=== PATIENT | female | born 1955 | race Caucasian/White ===

== ENCOUNTER 2017-02-27 05:20 | Inpatient (IN) | payer OTHER ==
[2017-01-20 13:06] VITALS: Ht 170.2 cm; Wt 129.7 kg
--- NOTE | 2017-01-20 13:38 | PAT Medication Instructions ---
Service Date Jan 20, 2017. Current Home Medication List Acetaminophen/Diphenhydramine (Tylenol Pm), 1 TAB PO HS Aspirin (Aspirin Ec), 81 MG PO QAM B-Complex W/ Folic Acid (Super B Complex Maxi), 1 TAB PO QAM Nmdsogartok-Lhhebqmzabq-Ozk C- (Glucosamine Chondroitin), 1 TAB PO QAM Hydrocodone/Acetaminophen 5MG/325MG ([place] 5MG/325MG), 1 TABLET PO Q4H PRN for N Ibuprofen (Motrin), 800 MG PO BID Lisinopril (Zestril), 20 MG PO QAM Lovastatin (Mevacor), 40 MG PO HS Multivitamin (Multivitamin), 1 TAB PO QAM Omeprazole (Prilosec), 20 MG PO QAM Paroxetine (Paxil), 20 MG PO QAM [Glyburide Metformin], 1 TAB PO QAM Medication Instructions For Your Scheduled Surgery - Check with surgeon for instructions: Ibuprofen (Motrin), 800 MG PO BID - Hold the following medications startomg 01/21/17: Dcvpmpsjbka-Egeleecubkb-Ijr C- (Glucosamine Chondroitin), 1 TAB PO QAM - Hold the following medications the morning of surgery: [Glyburide Metformin], 1 TAB PO QAM Multivitamin (Multivitamin), 1 TAB PO QAM Lisinopril (Zestril), 20 MG PO QAM B-Complex W/ Folic Acid (Super B Complex Maxi), 1 TAB PO QAM - Take the following medications the morning of surgery with a sip of water: Omeprazole (Prilosec), 20 MG PO QAM Paroxetine (Paxil), 20 MG PO QAM Hydrocodone/Acetaminophen 5MG/325MG ([place] 5MG/325MG), 1 TABLET PO Q4H PRN for N (okay to take up to 4 hours prior to surgery if needed) Ibuprofen (Motrin), 800 MG PO BID Aspirin (Aspirin Ec), 81 MG PO QAM (okay to continue per surgeon) - Take the following medications as scheduled the night before surgery: Lovastatin (Mevacor), 40 MG PO HS Acetaminophen/Diphenhydramine (Tylenol Pm), 1 TAB PO HS Hydrocodone/Acetaminophen 5MG/325MG ([place] 5MG/325MG), 1 TABLET PO Q4H PRN for N (if needed) If you have any questions please call us at [phone] or [phone] or [phone]
[2017-01-20 14:00] LABS: BASO % 0.3 %; BASO ABS # 0.02 K/uL (0-0.2); COMPLETE YES; EOS % 1.1 %; HEMATOCRIT 37.4 % (37-47); IG% 0.3 %; LYMPH % 24.3 %; LYMPH ABS # 1.77 K/uL (1.2-3.4); MEAN CELL VOLUME 93.3 fL (80-100); MEAN CORPUSCULAR HEMOGLOBIN 29.4 pg (25-34); MEAN CORPUSCULAR HGB CONC 31.6 g/dl (32-36); MEAN PLATELET VOLUME 9.4 fL (7.4-10.4); MONO % 7.7 %; NEUT % 66.3 %; PLATELET COUNT 337 K/uL (130-400); RED BLOOD COUNT 4.01 M/uL (4.2-5.4); WHITE BLOOD COUNT 7.27 K/uL (4.8-10.8)
[2017-01-20 14:01] LABS: BUN/CREATININE RATIO 22.3 (10-20); CALCIUM 9.5 mg/dl (8.5-10.1); CREATININE 1.3 mg/dl (0.60-1.20); POTASSIUM 5.2 mmol/L (3.5-5.1)
[2017-01-20 14:14] LABS: INR 0.9 (0.9-1.1); PARTIAL THROMBOPLASTIN RATIO 0.9; PROTHROMBIN TIME (PATIENT) 9.9 SECONDS (9.0-12.0)
[2017-01-20 15:02] LABS: URINE APPEARANCE CLEAR (CLEAR); URINE BILIRUBIN NEG (NEG); URINE COLOR YELLOW; URINE EPITHELIAL CELL AUTO >30 /lpf (0-5); URINE NITRITE NEG (NEG); URINE SPECIFIC GRAVITY 1.038 (1.000-1.030); UROBILINOGEN NEG (NEG); ZZUR CULT IF INDIC CLEAN CATCH NO
[2017-01-20 15:05] LABS: MANUAL MICROSCOPIC REQUIRED? NO; REVIEW REQ? YES
--- NOTE | 2017-01-20 16:07 | HISTORY & PHYSICAL EXAMINATION ---
DATE OF ADMISSION: 02/02/2017 CHIEF COMPLAINT: Right hip pain. HISTORY OF PRESENT ILLNESS: Carley is a 61-year-old female with a multiple year history of right hip pain. She rates her pain a 10/10. She has pain with her daily activities. She has limited standing and walking tolerance. Pain is worse with weightbearing. The patient uses a cane to ambulate. She has been doing home exercise program but is worsening her symptoms. She has failed conservative treatment and is scheduled for right hip replacement. PAST MEDICAL HISTORY: Hypertension, hypercholesterolemia, depression, diabetes with an A1c of 6.7, obesity, acid reflux. She denies heart disease or DVT. PAST SURGICAL HISTORY: ACL repair right knee, ACL repair left knee, breast reduction 2005. SOCIAL HISTORY: The patient denies alcohol or tobacco use. She lives in a single story home with her cousin. She works as a parts advisor. FAMILY HISTORY: Negative for DVT. MEDICATIONS: Aspirin 81 mg daily, glucosamine 500 mg daily, glyburide/metformin 5/500 1 tablet daily, hydrocodone 7.5/325, ibuprofen 400 mg 2 tablets b.i.d., lisinopril 20 mg daily, lovastatin 40, Paroxetine 20 mg, Prilosec 20 mg, Tylenol and multivitamin 1 daily. ALLERGIES: None. REVIEW OF SYSTEMS: See HPI. Ten other systems reviewed, all negative. PHYSICAL EXAMINATION: VITAL SIGNS: Height 5 foot 7, weight 284 pounds. BMI is 45. GENERAL: This is a well-developed, well-nourished female who is alert and oriented x3. Mood and affect are appropriate. HEAD, EYES, EARS, NOSE, AND THROAT: Normocephalic, atraumatic. Mucous membranes are moist and intact. NECK: Supple without lymphadenopathy. HEART: Regular rate and rhythm without murmurs, rubs or gallops. LUNGS: Clear to auscultation without wheezes or rhonchi. ABDOMEN: Soft and nontender. Bowel sounds are equal and active. EXTREMITIES: No ecchymosis, redness or warmth. Thigh and calf are soft and nontender. Log roll of the hip reproduces pain in the groin. Range of motion is decreased. She is neurovascularly intact with +5/5 strength. X-RAY EXAMINATION: AP and lateral views show joint space narrowing and severe osteophyte formation. IMPRESSION: 1. Degenerative joint disease, right hip. 2. Morbid obesity. PLAN: The patient will be admitted for a right total hip arthroplasty. We will plan on aspirin for DVT prophylaxis.
[2017-01-21 07:07] LABS: ESTIMATED AVERAGE GLUCOSE 143 mg/dl; HA1C FLAG Normal (Normal)
--- NOTE | 2017-02-26 21:48 | History and Physical ---
History & Physical Date & Time of Service: Feb 26, 2017 at 21:40 Chief Complaint: Right Hip Osteoarthritis Primary Care Physician: No Doctor, Assigned History of Present Illness Source: patient 61 yo with chronic rt hip pain, failed conservative treatment, has increased pain w wt bearing and has failed HEP and the use of a cane. DX w end staged oa per clinical and radiographic exams. Past Medical/Surgical History HTN, hyperlipidemia, Depression, DM, acid reflux, obesity. ACL repair both knees and breast reduction surgery. Social History Smoking Status: Never Smoker Alcohol Use: none Drug Use: none Housing status: lives with family Allergies Coded Allergies: Celecoxib (Verified Allergy, Unknown, RASH, 01/20/17) Etodolac (Verified Allergy, Unknown, RASH, 01/20/17) Penicillins (Verified Allergy, Unknown, RASH, 01/20/17) ALLERGY WAS IN CHILDHOOD Home Medications Scheduled Acetaminophen/Diphenhydramine (Tylenol Pm), 1 TAB PO HS Aspirin (Aspirin Ec), 81 MG PO QAM B-Complex W/ Folic Acid (Super B Complex Maxi), 1 TAB PO QAM Ugzgkcbxuis-Yzqvsobxbjz-Gvg C- (Glucosamine Chondroitin), 1 TAB PO QAM Ibuprofen (Motrin), 800 MG PO BID Lisinopril (Zestril), 20 MG PO QAM Lovastatin (Mevacor), 40 MG PO HS Multivitamin (Multivitamin), 1 TAB PO QAM Omeprazole (Prilosec), 20 MG PO QAM Paroxetine (Paxil), 20 MG PO QAM [Glyburide Metformin], 1 TAB PO QAM Scheduled PRN Hydrocodone/Acetaminophen 5MG/325MG ([place] 5MG/325MG), 1 TABLET PO Q4H PRN for N Review of Systems Musculoskeletal: + joint pain, + muscle pain (rt hip) Physical Exam General Appearance: WD/WN, no apparent distress Head: normocephalic, atraumatic Eyes: normal inspection, PERRL, EOMI ENT: normal ENT inspection Neck: supple, no adenopathy Respiratory/Chest: lungs clear Cardiovascular: regular rate, rhythm Abdomen/GI: normal bowel sounds, non tender, soft No redness or warmth, Palpably nontender, + pain w log rolling, N/V + , 5/5+ Impression Assessment and Plan Right hip OA HTN, hyperlipidemia, Depression, DM, acid reflux, obesity. Plan for Rt RONNIE w appropriate DVT proph. Advanced Directives Existing Living Will: No Existing Power of Educational Technology Coordinator: No
[~2017-02-27] VITALS: Ht 170.2 cm; Wt 129.7 kg
[2017-02-27] VITALS (10 sets, daily range): BP systolic 109–176; BP diastolic 70–89; PULSE 80–102; TEMP 36.6–37.2; O2SAT 94–100
[~2017-02-27 05:20] MED LIST: ASPI81TA28 PO; B-CO-25 PO; DIPH-437 PO; GLUCTAB7 PO; GLYBURIDE METFORMIN PO; HYDR-5688 PO; IBUP-1459 PO; LACTATED RINGER'S 1000ML 1,000 ML IV SCH; LACTATED RINGER'S 1000ML 500 ML IV ONE; LISI-725 PO; LOVA40TA4 PO; MULT-506 PO; PARO1TAB27 PO; PRLSR20 PO
[2017-02-27] MEDS ORDERED: VANCOMYCIN INJ 2,000 MG in SODIUM CHLORIDE 0.9% 500ML 500 ML IV SCH (06:00)
[2017-02-27] MEDS ORDERED: ROPIVACAINE 5MG/ML 30 ML 150 MG, BUPIVACAINE/EPINEPHR 0.5% MPF 30 ML, KETOROLAC TROMETH... INFIL SCH ×6 (06:00)
[2017-02-27] MEDS ORDERED: VANCOMYCIN 1GM/270ML NSS 270 ML IV SCH (06:00)
[2017-02-27] MEDS ORDERED: LACTATED RINGER'S 500 ML IV SCH (06:00)
[2017-02-27] MEDS: METOCLOPRAMIDE HCL 10 MG TAB PO SCH ×2 (06:23→12:57)
[2017-02-27] MEDS: ACETAMINOPHEN 500 MG TAB PO SCH ×4 (06:23→22:21)
[2017-02-27] MEDS: FAMOTIDINE 20 MG TAB PO SCH ×2 (06:23→12:57)
[2017-02-27] MEDS: DEXAMETHASONE 4 MG TAB PO SCH ×2 (06:24→12:57)
[2017-02-27] MEDS: GABAPENTIN 300 MG CAP PO SCH ×2 (06:24→12:57)
[2017-02-27] MEDS ORDERED: PROPOFOL IV EMULSION 10 MG/ML 20 ML VIAL IV ONE ×4 (06:33→10:02)
[2017-02-27] MEDS ORDERED: FENTANYL CITRATE INJ 50 MCG/1 ML 2 ML VIAL ONE ×4 (06:33→11:10)
[2017-02-27] MEDS ORDERED: MIDAZOLAM HCL 1 MG/ML 2ML VIAL ONE ×2 (06:33→08:50)
[2017-02-27] MEDS ORDERED: LIDOCAINE HCL 2% 2 ML VIAL (20MG/ML) ONE (06:33)
[2017-02-27] MEDS ORDERED: KETAMINE HCL INJ 50 MG/ML 10 ML VIAL ONE (06:34)
[2017-02-27] MEDS ORDERED: BUPIVACAINE 0.5 % 5 MG/1 ML PF 10ML VIAL ONE (06:38)
[2017-02-27] MEDS ORDERED: BACITRACIN 50000 UNIT VIAL ONE (06:53)
[2017-02-27] MEDS ORDERED: POVIDONE-IODINE OP SOLN 30 ML BTL ONE (06:53)
--- NOTE | 2017-02-27 07:11 | History & Physical Bridge Note ---
H&P Re-Evaluation Bridge Note: I have examined the patient, reviewed the History & Physical and in the interval since the performance of the History & Physical I have noted the following changes of clinical significance: No changes noted
[2017-02-27] MEDS: TRANEXAMIC ACID INJ 1,000 MG in SODIUM CHLORIDE 0.9% 100ML 100 ML IV SCH ×3 (07:13→12:57)
[2017-02-27] MEDS ORDERED: EpHEDrine SULFATE INJ 50 MG/ML AMP IV PRN (07:30)
[2017-02-27] MEDS ORDERED: ATROPINE SULFATE 0.1 MG/ML 5ML SYR IV PRN (07:30)
[2017-02-27] MEDS ORDERED: ONDANSETRON INJ 2 MG/ML 2 ML VIAL IV PRN ×2 (07:30→11:00)
[2017-02-27] MEDS ORDERED: ROPIVACAINE 5MG/ML 30 ML 150 MG, BUPIVACAINE/EPINEPHR 0.5% MPF 30 ML, KETAMINE HCL INJ ... INFIL SCH ×5 (08:00)
[2017-02-27] MEDS ORDERED: LABETALOL HCL IV 5 MG/ML 20ML IV ONE (09:54)
[2017-02-27] MEDS ORDERED: HYDROmorphone INJ 2 MG/ML SYR/VIAL ONE (10:38)
[2017-02-27] MEDS ORDERED: SODIUM CHLORIDE 0.9% INJ 10 ML VIAL ONE (10:39)
[2017-02-27] MEDS ORDERED: D5W AND 1/2NSS + 20MEQ KCL 1,000 ML IV SCH (10:58)
[2017-02-27] MEDS: FENTANYL CITRATE INJ 50 MCG/1 ML 2 ML VIAL IV PRN ×3 (11:35→11:48)
--- NOTE | 2017-02-27 11:51 | [facility] Operative Report ---
Operative Report Operative Date Feb 27, 2017. Pre-Operative Diagnosis Right hip osteoarthritis, morbid obesity Post-Operative Diagnosis same, possible AVN femoral head with collapse Surgeon Ayala Long Distance Billing Operator Surgeon(s) Cristal Palma PA-C Estimated Blood Loss 400CC Findings Severe collapsed femoral head severe degenerative arthritis right hip morbid obesity. Specimens A: Right hip bone and tissue Drains 2 Hemovac deep, 2 Hemovac subcutaneous Anesthesia spinal followed by general LMA Complication(s) Possible hairline fracture femoral neck into lesser trochanter Disposition Recovery Room / PACU Indications Severe degeneration right hip and inability ambulate. Description of Procedure Patient taken to the operating room and anesthetized under spinal anesthesia. Patient was placed supine on the operating table. Exam of the right hip involved extremity demonstrated patient has had fairly good range of motion in flexion to at least 115 and had a very obese thigh obese belly.. Patient was placed on a sacral pad the involved leg was placed on a foot pump to flex knee 90 and hip 60. A Hurt-type approach was performed to the right hip. A longitudinal lateral incision was made over the right hip. The skin was incised sharply. The fat was divided down to the fascia. Subcutaneous bleeders are cauterized. Trochanter bursa was resected. The gluteus medius was noted to be thin and had some deep degeneration but still was intact . A split was made in the gluteus medius muscle between the anterior 40% and posterior 60%. The minimus was divided longitudinally reflected off the underlying capsule. The capsule was incised down to the hip joint. Intra- articular findings demonstrated femoral head collapse femoral neck osteophytes severe DJD. . An incision was made through the gluteus medius leaving a cuff of tendon for repair on the greater trochanter. The vastus lateralis was split longitudinally for about 3 cm. A muscular capsular flap was elevated off the hip. The hip was dislocated with use of bone out with flexion and external rotation. The femoral neck cut was made approximately 15 mm proximal to the lesser trochanter in neutral anteversion. Head and neck fragment were removed. The femoral head demonstrated collapse of the femoral head and grade 4 DJD. A self-retaining superior tractor was impacted into the ilium a blunt Guerrero retractor was placed anteriorly a double angled inferior retractor was placed on the issue. The acetabulum demonstrated . The acetabular labrum was resected all osteophytes were resected soft tissue mass of her fossa was resected. An intracapsular release was performed. Some the capsule was resected for exposure. The first reamer was used to medialize reaming to the inner table and then sequential reamers for the acetabulum were used in 2 mm increments up to a size 54 mm . I used the Comput[employer] total hip arthroplasty system using a PSL type cup. Trial reduction demonstrated a 54 mm millimeter cup was the appropriate size and fit. The placement of the final implant was performed after irrigating the acetabulum with antibiotic solution with pulsatile lavage. The position of the cup was approximately 15 anteversion 45 abduction. Good fixation was performed. 2 screws were placed in the posterior superior quadrant for further fixation through the cup. The acetabular liner was impacted into position. The Trident x3 poly 0 degree F 36 mm diameter acetabular liner was used. Retractors were removed and attention was taken to the femur. The femur was exposed with flexion external rotation. Canal reamer was used followed by sequential broaches up to a size 3 Accolade 2 trial. This had a good fit and fill. When the stem was fully seated we did note a microscopic crack along the medial calcar and it looked like it was heading toward the lesser trochanter. It was in a large crack in the like hairline crack but I didn't feel because of her obesity we should put a prophylactic wire around this so we put a Dall-Miles type cable around the femoral neck and tightened appropriately. Trial reduction was performed on 127 neck angle based on preoperative templating. A +5 neck length gave equal leg lengths and stable range of motion through full flexion flexion adduction and internal rotation and extension and external rotation. The trials removed and after irrigation again and the final implant was impacted which was the Accolade 2 size 3 stem 127 neck angle . The Biolox ceramic head size +5 mm with 36 mm diameter was used. After final implants replaced the reduction was noted to be stable. 2 drains were placed deep. These were brought out laterally and connected to Hemovac. The minimus was closed with interrupted [id number] #1 Vicryl sutures. The medius was closed with transosseous #5 FiberWire sutures using Dmitry Kapil stitch technique. Lateral row soft tissue repair was performed with figure of 8 #2 FiberWire sutures. The medius split was closed with interrupted [id number] #1 Vicryl sutures. The vastus lateralis was closed with interrupted figure minimal Vicryl sutures. The fascia juan r was closed with interrupted figure of 8 number 1 Vicryl sutures. The fat was closed with large needle #2 Vicryl to close the space over to more Hemovac drains and superficial [id number] #2 Vicryl sutures. Skin was closed with sixto sterile dressings were applied. The patient tolerated procedure well. Cristal Palma, my physician assistant manager of operations assisted me in the procedure with patient positioning And draping soft tissue retraction instrument management suture management and assisted in the outer layer closure and will participate in the postoperative care the patient thank you. I attest to the content of the Intraoperative Record and any orders documented therein. Any exceptions are noted below.
--- NOTE | 2017-02-27 11:54 | DIAGNOSTIC IMAGING REPORT ---
RIGHT PELVIS/UNILATERAL HIP 1 VIEW CLINICAL HISTORY: IN PACU - A/P PELVIS and LATERAL HIP INCLUDING ALL OF IMPLANT Right COMPARISON: None. DISCUSSION: Total right hip arthroplasty. Circumferential wire proximal femur. No evidence for acetabular protrusion. Expected soft tissue postoperative change IMPRESSION: No acute process status post total right hip replacement The above report was generated using voice recognition software. It may contain grammatical, syntax or spelling errors. Electronically signed by: Ildefonso Chavez M.D. 02/27/2017 11:53 AM Dictated Date/Time: 02/27/2017 11:48 AM
--- NOTE | 2017-02-27 12:00 | Anesthesiology Progress Note ---
Anesthesia Post Op Note Date & Time Feb 27, 2017 at 11:59 Vital Signs Pain Intensity: 5 Vital Signs Past 12 Hours Date Time Temp Pulse Resp B/P (MAP) Pulse Ox O2 Delivery O2 Flow Rate FiO2 02/27/17 11:50 81 18 139/69 96 Nasal Cannula 3 02/27/17 11:40 86 14 143/66 100 Oxymask 6 02/27/17 11:30 90 12 156/74 100 Oxymask 10 02/27/17 11:24 152/72 02/27/17 11:21 37.4 95 16 199/110 100 Oxymask 10 02/27/17 06:13 37.1 80 18 176/89 94 Room Air Notes Mental Status: alert / awake / arousable, participated in evaluation Pt Amnestic to Procedure: Yes Nausea / Vomiting: adequately controlled Pain: adequately controlled Airway Patency, RR, SpO2: stable & adequate BP & HR: stable & adequate Hydration State: stable & adequate Neuraxial Anesthesia: was administered, sensory block is resolving Anesthetic Complications: no major complications apparent
[2017-02-27] MEDS: LACTATED RINGER'S 1000ML IV SCH ×4 (12:53→12:57)
[2017-02-27] MEDS ORDERED: GLUCOSE 10 TABS/TUBE PO PRN (13:45)
[2017-02-27] MEDS ORDERED: GLUCOSE 40% GEL 15 GM TUBE PO PRN (13:45)
[2017-02-27] MEDS ORDERED: GLUCAGON FOR INJ 1 MG VIAL SQ PRN (13:45)
[2017-02-27] MEDS ORDERED: SODIUM CHLORIDE 0.9% 1000ML 1,000 ML IV SCH (13:45)
[2017-02-27] MEDS ORDERED: DEXTROSE 50% 50 ML SYR IV PRN (13:45)
[2017-02-27] MEDS: OXYCODONE HCL IR 5 MG TAB (IMMEDIATE RELEASE) PO PRN ×4 (13:48→23:28)
[2017-02-27] MEDS ORDERED: VANCOMYCIN INJ 1,900 MG in SODIUM CHLORIDE 0.9% 500ML 500 ML IV SCH (18:00)
[2017-02-27] MEDS: FERROUS GLUCONATE 324 MG TAB PO SCH (18:36)
[2017-02-27] MEDS: INSULIN ASPART 100 UNITS/ML 3 ML PEN SC SCH (18:42)
[2017-02-27] MEDS: OXYCODONE HCL 10 MG TABCR (OXYCONTIN) PO SCH (20:02)
[2017-02-27] MEDS: DOCUSATE SODIUM 100 MG CAP PO SCH (21:22)
[2017-02-27 21:26] LABS: HEMATOCRIT 26.8 % (37-47); MEAN CELL VOLUME 89.6 fL (80-100); MEAN CORPUSCULAR HEMOGLOBIN 28.8 pg (25-34); MEAN PLATELET VOLUME 8.9 fL (7.4-10.4); PLATELET COUNT 329 K/uL (130-400); RED BLOOD COUNT 2.99 M/uL (4.2-5.4); WHITE BLOOD COUNT 13.57 K/uL (4.8-10.8)
[2017-02-27 21:33] LABS: MEAN CORPUSCULAR HGB CONC 32.1 g/dl (32-36)
[2017-02-27 21:55] LABS: BUN/CREATININE RATIO 17.3 (10-20); CALCIUM 8.4 mg/dl (8.5-10.1); CREATININE 1.2 mg/dl (0.60-1.20); POTASSIUM 4.3 mmol/L (3.5-5.1)
[2017-02-27] MEDS: SODIUM CHLORIDE 0.9% 1000ML 1,000 ML IV SCH (22:22)
--- NOTE | 2017-02-27 23:15 | Medical Consult ---
Consultation Date of Consultation: Feb 27, 2017. Attending Physician: Carlos Cai M.D. History of Present Illness 61-year-old female with a past medical history of hypertension, GERD, diabetes status post right hip total arthroplasty was seen tonight after RASHEEDA maurer was called . The patient had a syncopal episode after she stood up and was apparently unconscious for a few minutes. She had a pulse and was breathing . She regained consciousness within a few minutes. She stated that she had felt lightheaded on standing and passed out. Denied any chest pain or difficulty breathing but was very diaphoretic. She denied any excessive pain. Her blood sugar was 197 .Vitals were stable. CBC, BMP, troponin, EKG were ordered and she was transferred to telemetry. Social History Smoking Status: Never Smoker Alcohol Use: none Drug Use: none Allergies Coded Allergies: Celecoxib (Verified Allergy, Unknown, RASH, 02/27/17) Etodolac (Verified Allergy, Unknown, RASH, 02/27/17) Penicillins (Verified Allergy, Unknown, RASH, 02/27/17) ALLERGY WAS IN CHILDHOOD Current Inpatient Medications Current Inpatient Medications Medications (Trade) Dose Ordered Sig/Luis Route Start Time Stop Time Status Last Admin Dose Admin Oxycodone HCl (Roxicodone Immediate Rel Tab) 1 TABLET FOR PAIN RATING... Q4H PRN PO 02/27/17 11:00 03/13/17 10:59 02/27/17 18:48 10 MG Acetaminophen (Tylenol Tab) 1,000 mg Q8 PO 02/27/17 16:00 03/29/17 15:59 02/27/17 22:21 1,000 MG Magnesium Hydroxide (Milk Of Magnesia Susp) 30 ml Q6H PRN PO 02/27/17 11:00 03/29/17 10:59 Docusate Sodium (coLACE CAP) 100 mg BID PO 02/27/17 21:00 03/29/17 20:59 02/27/17 21:22 100 MG Diphenhydramine HCl (Benadryl Cap) 25 mg Q8H PRN PO 02/27/17 11:00 03/29/17 10:59 Multivitamins (Multivitamin Tab) 1 tab QAM PO 02/28/17 09:00 03/30/17 08:59 Ondansetron HCl (Zofran Inj) 4 mg Q6H PRN IV 02/27/17 11:00 03/29/17 10:59 Ferrous Gluconate (Ferrous Gluconate Tab) 324 mg TIDM PO 02/27/17 17:45 03/29/17 17:44 02/27/17 18:36 324 MG Pantoprazole Sodium (Protonix Tab) 40 mg QAM PO 02/28/17 09:00 03/30/17 08:59 Oxycodone HCl (Oxycontin Tab) 10 mg Q12H PO 02/27/17 21:00 03/13/17 20:59 02/27/17 20:02 10 MG Lisinopril (Zestril Tab) 20 mg QAM PO 02/28/17 09:00 03/30/17 08:59 Paroxetine HCl (pAXil TAB) 20 mg QAM PO 02/28/17 09:00 03/30/17 08:59 Rivaroxaban (Xarelto Tab) 10 mg DAILY PO 02/28/17 09:00 03/30/17 08:59 Insulin Aspart (novoLOG ASPART) SLIDING SCALE G... ACHS SC 02/27/17 16:00 03/29/17 15:59 02/27/17 18:42 5 UNITS Glucose (Glucose 40% Gel) 15-30 GRAMS 15 GRAMS... UD PRN PO 02/27/17 13:45 03/29/17 13:44 Glucose (Glucose Chew Tab) 4-8 Tablets 4 Tabl... UD PRN PO 02/27/17 13:45 03/29/17 13:44 Dextrose (Dextrose 50% 50ML Syringe) 25-50ML OF 50% DW IV FOR... UD PRN IV 02/27/17 13:45 03/29/17 13:44 Glucagon (Glucagon Inj) 1 mg UD PRN SQ 02/27/17 13:45 03/29/17 13:44 Sodium Chloride 1,000 ml @ 100 mls/hr Q10H IV 02/27/17 21:30 03/29/17 21:29 02/27/17 22:22 100 MLS/HR Review of Systems Constitutional: No fever, No chills ENT: No hearing loss Respiratory: No cough, No shortness of breath Cardiovascular: No chest pain Abdomen: No pain, No nausea Musculoskeletal: + joint pain (pain along right hip) Genitourinary - Female: No dysuria, No urinary frequency Neurologic: No memory loss Physical Exam Date Time Temp Pulse Resp B/P (MAP) Pulse Ox O2 Delivery O2 Flow Rate FiO2 02/27/17 22:13 37.1 81 20 96 2.0 02/27/17 21:42 37.1 81 20 149/79 (102) 96 Room Air 02/27/17 19:24 37.2 84 18 124/78 (93) 100 Nasal Cannula 2.0 02/27/17 16:30 100 Nasal Cannula 2.0 02/27/17 15:32 37.0 90 18 117/83 (94) 100 Nasal Cannula 3.0 02/27/17 14:34 86 16 120/70 (87) 100 Nasal Cannula 2.0 02/27/17 13:34 102 17 114/76 (89) 99 Nasal Cannula 2.0 02/27/17 13:00 Nasal Cannula 02/27/17 13:00 36.6 86 16 109/71 (84) 98 Nasal Cannula 02/27/17 12:41 100 Nasal Cannula 3.0 02/27/17 12:30 37.2 90 18 117/79 (92) 100 Nasal Cannula 3.0 02/27/17 12:15 78 14 113/71 97 Nasal Cannula 3 02/27/17 12:00 36.8 82 13 126/68 97 Nasal Cannula 3 02/27/17 11:50 81 18 139/69 96 Nasal Cannula 3 02/27/17 11:40 86 14 143/66 100 Oxymask 6 02/27/17 11:30 90 12 156/74 100 Oxymask 10 02/27/17 11:24 152/72 02/27/17 11:21 37.4 95 16 199/110 100 Oxymask 10 02/27/17 06:13 37.1 80 18 176/89 94 Room Air General Appearance: WD/WN, + obese, + pertinent finding (diaphoretic) Eyes: normal inspection ENT: hearing grossly normal Neck: supple Respiratory/Chest: chest non-tender, lungs clear, normal breath sounds, no respiratory distress, no accessory muscle use Cardiovascular: regular rate, rhythm Abdomen/GI: normal bowel sounds, soft Extremities/Musculoskelatal: no calf tenderness, no pedal edema Neurologic/Psych: alert, normal mood/affect, oriented x 3 Laboratory Results Last 24 Hours Test 02/27/17 05:53 02/27/17 11:31 02/27/17 12:39 02/27/17 16:53 Bedside Glucose 115 mg/dl 211 mg/dl 234 mg/dl 272 mg/dl Test 02/27/17 20:46 02/27/17 21:15 02/27/17 22:07 Bedside Glucose 197 mg/dl 211 mg/dl White Blood Count 13.57 K/uL Red Blood Count 2.99 M/uL Hemoglobin 8.6 g/dL Hematocrit 26.8 % Mean Corpuscular Volume 89.6 fL Mean Corpuscular Hemoglobin 28.8 pg Mean Corpuscular Hemoglobin Concent 32.1 g/dl RDW Standard Deviation 43.2 fL RDW Coefficient of Variation 13.2 % Platelet Count 329 K/uL Mean Platelet Volume 8.9 fL Sodium Level 134 mmol/L Potassium Level 4.3 mmol/L Chloride Level 103 mmol/L Carbon Dioxide Level 22 mmol/L Anion Gap 9.0 mmol/L Blood Urea Nitrogen 21 mg/dl Creatinine 1.20 mg/dl Est Creatinine Clear Calc Drug Dose 70.2 ml/min Estimated GFR () 57.3 Estimated GFR (Non- 49.4 BUN/Creatinine Ratio 17.3 Random Glucose 223 mg/dl Calcium Level 8.4 mg/dl Troponin I < 0.015 ng/ml Assessment & Plan 61-year-old female with a past medical history of diabetes, hyperlipidemia, hypertension status post right total hip replacement had a syncopal episode on standing appointment she was transferred to telemetry. Syncope: Likely vasovagal - Vital signs stable - EKG unremarkable - CBC, BMP, troponin ordered - Continue IV fluids Hypertension: - Lisinopril Diabetes - Insulin sliding scale Right total hip replacement - Management per orthopedics Full code Disposition: Transfer to telemetry DVT prophylaxis: To be started on xarelto in AM Reviewed: Pt Seen/Exam by Me History Resident Physician Supervision Note: I interviewed and examined the patient. Discussed with Dr. Short and agree with findings and plan as documented in the note. Any exceptions or clarifications are listed here: Patient was seen and examined after a code purple was called after she had syncope upon standing for the first time since her right total hip arthroplasty surgery. The RN reports that the patient sat up at the bedside and when she stood up, she had very lightheaded and then passed out. She was apparently unconscious for a couple of minutes but was breathing and had a pulse. When I came to see the patient, she was awake and alert and oriented, but was profusely diaphoretic. She had no complaints of pain except for her right hip. She denied chest pain or shortness of breath. She was hypertensive but not hypoxic and had a normal heart rate. Her ECG showed normal sinus rhythm without signs of ischemia. Her blood glucose was actually elevated at 197. She denies a prior history of syncope or any cardiac problems whatsoever. Past medical history significant for HTN, hyperlipidemia, Depression, DM, acid reflux, obesity. Past surgical history significant for ACL repair both knees and breast reduction surgery. Vitals reviewed Profusely diaphoretic but alert awake oriented 3, morbidly obese Regular rate and rhythm, no murmurs gallops rubs Clear to auscultation bilaterally, breathing is unlabored, pulse ox was normal, no wheezes crackles or rhonchi Abdomen positive bowel sounds, morbidly obese, nontender nondistended Extremities: Right hip with dressing in place clean dry and intact, no edema, calves nontender, able to move all extremities Skin no rashes 61-year-old female with a history of hypertension, diabetes mellitus type 2, Hyperlipidemia, GERD, obesity, and osteoarthritis, here status post right hip RONNIE and with post op syncope upon standing. Syncope-most likely vasovagal and could be due to orthostatic hypotension upon standing. Hemoglobin did drop 3 g from preadmission labs but she is not hypotensive or tachycardic. ECG without ischemia, initial troponin is negative. She is completely asymptomatic upon regaining consciousness, I do not suspect PE. -Transferred to telemetry for further monitoring -Trend troponins, check echocardiogram -Will hydrate with IV fluids -Repeat hemoglobin in the morning and may need blood transfusion but will hold off on that for now Right RONNIE -Postoperative management otherwise as per orthopedics -Plan for using Xarelto for DVT prophylaxis Diabetes mellitus type 2-hemoglobin A1c 6.6% very well controlled -Sliding scale insulin here, Accu-Cheks Hypertension-stable -Okay to give lisinopril in the morning if not hypotensive CKD stage III-stable from previous, creatinine 1.2 -Renally dose medications -Avoid nephrotoxins Documented By: Brionna Knowles
[2017-02-28] VITALS (17 sets, daily range): BP systolic 91–153; BP diastolic 47–80; PULSE 70–98; TEMP 36.5–38.2; O2SAT 93–97
[2017-02-28] MEDS: OXYCODONE HCL IR 5 MG TAB (IMMEDIATE RELEASE) PO PRN ×2 (04:21→13:05)
[2017-02-28 04:46] LABS: BASO % 0.2 %; BASO ABS # 0.02 K/uL (0-0.2); HEMATOCRIT 23.8 % (37-47); IG% 0.4 %; LYMPH % 8.8 %; LYMPH ABS # 1.12 K/uL (1.2-3.4); MEAN CELL VOLUME 89.8 fL (80-100); MEAN CORPUSCULAR HEMOGLOBIN 29.4 pg (25-34); MEAN CORPUSCULAR HGB CONC 32.8 g/dl (32-36); MEAN PLATELET VOLUME 9.1 fL (7.4-10.4); MONO % 12.3 %; NEUT % 78.3 %; PLATELET COUNT 314 K/uL (130-400); RED BLOOD COUNT 2.65 M/uL (4.2-5.4); WHITE BLOOD COUNT 12.76 K/uL (4.8-10.8)
[2017-02-28 05:03] LABS: BLOOD UREA NITROGEN 19 mg/dl (7-18); BUN/CREATININE RATIO 18.6 (10-20); CALCIUM 8.2 mg/dl (8.5-10.1); CARBON DIOXIDE 25 mmol/L (21-32); CHLORIDE 102 mmol/L (98-107); COMPLETE YES; GLUCOSE 191 mg/dl (70-99); POTASSIUM 4.5 mmol/L (3.5-5.1); SODIUM 134 mmol/L (136-145)
[2017-02-28] MEDS: ACETAMINOPHEN 500 MG TAB PO SCH ×3 (06:27→22:55)
[2017-02-28] MEDS: INSULIN ASPART 100 UNITS/ML 3 ML PEN SC SCH ×5 (07:00→21:08)
[2017-02-28] MEDS: MULTIVITAMIN TAB PO SCH (07:48)
[2017-02-28] MEDS: PANTOprazole SOD 40 MG TAB PO SCH (07:48)
[2017-02-28] MEDS: SODIUM CHLORIDE 0.9% 1000ML 1,000 ML IV SCH ×2 (07:48→16:59)
[2017-02-28] MEDS: LISINOPRIL 20 MG TAB PO SCH (07:49)
[2017-02-28] MEDS: PAROXETINE 20 MG TAB PO SCH (07:49)
[2017-02-28] MEDS: DOCUSATE SODIUM 100 MG CAP PO SCH ×2 (07:49→21:04)
[2017-02-28] MEDS: RIVAROXABAN 10 MG TAB PO SCH (07:49)
[2017-02-28] MEDS: FERROUS GLUCONATE 324 MG TAB PO SCH ×3 (07:49→16:58)
[2017-02-28] MEDS: OXYCODONE HCL 10 MG TABCR (OXYCONTIN) PO SCH ×2 (07:51→21:08)
--- NOTE | 2017-02-28 08:40 | Progress Note ---
Orthopedic SOAP Note Subjective Date of Service: Feb 28, 2017. Reports: feeling well Additional Notes: pain improved today Objective N/V intact, hip located, dressing C/D/I, CMS intact Date Time Temp Pulse Resp B/P (MAP) Pulse Ox O2 Delivery O2 Flow Rate FiO2 02/28/17 08:00 95 Room Air 2.0 02/28/17 07:18 37.7 91 18 138/75 (96) 95 Room Air 02/28/17 04:09 38.2 98 22 153/80 (104) 93 Room Air 02/28/17 04:00 Room Air 02/28/17 00:00 Room Air 02/27/17 23:27 37.2 80 22 141/71 (94) 100 Room Air 02/27/17 22:13 37.1 81 20 96 2.0 02/27/17 21:42 37.1 81 20 149/79 (102) 96 Room Air 02/27/17 19:24 37.2 84 18 124/78 (93) 100 Nasal Cannula 2.0 02/27/17 16:30 100 Nasal Cannula 2.0 02/27/17 15:32 37.0 90 18 117/83 (94) 100 Nasal Cannula 3.0 02/27/17 14:34 86 16 120/70 (87) 100 Nasal Cannula 2.0 02/27/17 13:34 102 17 114/76 (89) 99 Nasal Cannula 2.0 02/27/17 13:00 Nasal Cannula 02/27/17 13:00 36.6 86 16 109/71 (84) 98 Nasal Cannula 02/27/17 12:41 100 Nasal Cannula 3.0 02/27/17 12:30 37.2 90 18 117/79 (92) 100 Nasal Cannula 3.0 02/27/17 12:15 78 14 113/71 97 Nasal Cannula 3 02/27/17 12:00 36.8 82 13 126/68 97 Nasal Cannula 3 02/27/17 11:50 81 18 139/69 96 Nasal Cannula 3 02/27/17 11:40 86 14 143/66 100 Oxymask 6 02/27/17 11:30 90 12 156/74 100 Oxymask 10 02/27/17 11:24 152/72 02/27/17 11:21 37.4 95 16 199/110 100 Oxymask 10 Laboratory Results 24 Hours: Test 02/27/17 21:15 02/28/17 04:13 Hematocrit 26.8 % 23.8 % Hemoglobin 8.6 g/dL 7.8 g/dL White Blood Count 12.76 K/uL Red Blood Count 2.65 M/uL Mean Corpuscular Volume 89.8 fL Mean Corpuscular Hemoglobin 29.4 pg Mean Corpuscular Hemoglobin Concent 32.8 g/dl Platelet Count 314 K/uL Mean Platelet Volume 9.1 fL Neutrophils (%) (Auto) 78.3 % Lymphocytes (%) (Auto) 8.8 % Monocytes (%) (Auto) 12.3 % Eosinophils (%) (Auto) 0.0 % Basophils (%) (Auto) 0.2 % Neutrophils # (Auto) 10.00 K/uL Lymphocytes # (Auto) 1.12 K/uL Monocytes # (Auto) 1.57 K/uL Eosinophils # (Auto) 0.00 K/uL Basophils # (Auto) 0.02 K/uL Assessment POD #1 s/p right RONNIE . small femoral neck fx nondisplaced extending only to lesser trochanter with cerclage wiring.vasovagal episode due to pain yesterday , feeling better. postop anemia due to intraoperative and postop blood losses. consider blood transfusion.toe touch foot to balance weight on right for one month.
[2017-02-28] MEDS ORDERED: MULTIVITAMIN TAB PO SCH (09:00)
--- NOTE | 2017-02-28 21:33 | Hospitalist Progress Note ---
Hospitalist Progress Note Date of Service Feb 28, 2017. Subjective Pt evaluation today including: conversation w/ patient, lab review, review of studies Patient with no complaints Objective Vital Signs Date Time Temp Pulse Resp B/P (MAP) Pulse Ox O2 Delivery O2 Flow Rate FiO2 02/28/17 20:00 Room Air 02/28/17 19:28 37.5 84 20 102/62 (75) 96 Room Air 02/28/17 16:00 95 Room Air 2.0 02/28/17 15:44 37.6 74 18 100/64 (76) 96 Room Air 02/28/17 15:15 37.6 74 18 100/64 96 02/28/17 13:48 36.5 78 112/78 95 02/28/17 13:43 96 02/28/17 13:18 36.8 78 18 103/65 95 02/28/17 13:03 36.7 78 20 91/47 97 02/28/17 12:19 36.5 70 20 110/60 95 02/28/17 12:00 36.7 80 20 112/78 (89) 95 Room Air 02/28/17 12:00 95 Room Air 2.0 02/28/17 11:19 36.7 72 18 102/64 02/28/17 10:19 36.7 78 20 112/68 96 02/28/17 09:49 36.5 78 20 112/68 97 02/28/17 09:34 36.7 78 18 109/67 95 02/28/17 08:00 95 Room Air 2.0 02/28/17 07:18 37.7 91 18 138/75 (96) 95 Room Air 02/28/17 04:09 38.2 98 22 153/80 (104) 93 Room Air 02/28/17 04:00 Room Air 02/28/17 00:00 Room Air 02/27/17 23:27 37.2 80 22 141/71 (94) 100 Room Air 02/27/17 22:13 37.1 81 20 96 2.0 02/27/17 21:42 37.1 81 20 149/79 (102) 96 Room Air Physical Exam General Appearance: no apparent distress Eyes: normal inspection Neck: trachea midline Respiratory/Chest: lungs clear Cardiovascular: regular rate, rhythm Abdomen: non tender Extremities: non-tender Neurologic/Psychiatric: alert Laboratory Results Last 24 Hours Test 02/27/17 22:07 02/28/17 04:13 02/28/17 06:41 02/28/17 11:24 Bedside Glucose 211 mg/dl 182 mg/dl 202 mg/dl White Blood Count 12.76 K/uL Red Blood Count 2.65 M/uL Hemoglobin 7.8 g/dL Hematocrit 23.8 % Mean Corpuscular Volume 89.8 fL Mean Corpuscular Hemoglobin 29.4 pg Mean Corpuscular Hemoglobin Concent 32.8 g/dl Platelet Count 314 K/uL Mean Platelet Volume 9.1 fL Neutrophils (%) (Auto) 78.3 % Lymphocytes (%) (Auto) 8.8 % Monocytes (%) (Auto) 12.3 % Eosinophils (%) (Auto) 0.0 % Basophils (%) (Auto) 0.2 % Neutrophils # (Auto) 10.00 K/uL Lymphocytes # (Auto) 1.12 K/uL Monocytes # (Auto) 1.57 K/uL Eosinophils # (Auto) 0.00 K/uL Basophils # (Auto) 0.02 K/uL RDW Standard Deviation 44.0 fL RDW Coefficient of Variation 13.4 % Immature Granulocyte % (Auto) 0.4 % Immature Granulocyte # (Auto) 0.05 K/uL Red Blood Cell Morphology Unremarkable Sodium Level 134 mmol/L Potassium Level 4.5 mmol/L Chloride Level 102 mmol/L Carbon Dioxide Level 25 mmol/L Anion Gap 7.0 mmol/L Blood Urea Nitrogen 19 mg/dl Creatinine 1.00 mg/dl Est Creatinine Clear Calc Drug Dose 84.2 ml/min Estimated GFR () 71.4 Estimated GFR (Non- 61.6 BUN/Creatinine Ratio 18.6 Random Glucose 191 mg/dl Calcium Level 8.2 mg/dl Troponin I < 0.015 ng/ml Test 02/28/17 15:59 02/28/17 20:01 Bedside Glucose 187 mg/dl 211 mg/dl Assessment and Plan (1) Anemia requiring transfusions Assessment & Plan: Currently receiving blood transfusion (2) Hypertension Assessment & Plan: Monitor blood pressure any lisinopril
[2017-03-01] VITALS (10 sets, daily range): BP systolic 103–133; BP diastolic 51–69; PULSE 72–103; TEMP 36.4–37.7; O2SAT 92–98
[2017-03-01] MEDS: SODIUM CHLORIDE 0.9% 1000ML 1,000 ML IV SCH ×3 (02:41→23:30)
[2017-03-01] MEDS: OXYCODONE HCL IR 5 MG TAB (IMMEDIATE RELEASE) PO PRN (05:47)
[2017-03-01 05:57] LABS: HEMATOCRIT 24.8 % (37-47); MEAN CELL VOLUME 88.9 fL (80-100); MEAN CORPUSCULAR HEMOGLOBIN 29.4 pg (25-34); MEAN CORPUSCULAR HGB CONC 33.1 g/dl (32-36); MEAN PLATELET VOLUME 9.4 fL (7.4-10.4); PLATELET COUNT 239 K/uL (130-400); RED BLOOD COUNT 2.79 M/uL (4.2-5.4); WHITE BLOOD COUNT 10.03 K/uL (4.8-10.8)
[2017-03-01 06:26] LABS: BUN/CREATININE RATIO 18.9 (10-20); CALCIUM 8.5 mg/dl (8.5-10.1); CREATININE 0.95 mg/dl (0.60-1.20); POTASSIUM 4.9 mmol/L (3.5-5.1)
[2017-03-01] MEDS: INSULIN ASPART 100 UNITS/ML 3 ML PEN SC SCH ×4 (07:00→21:46)
[2017-03-01] MEDS: PAROXETINE 20 MG TAB PO SCH (07:03)
[2017-03-01] MEDS: FERROUS GLUCONATE 324 MG TAB PO SCH ×3 (07:03→16:54)
[2017-03-01] MEDS: MULTIVITAMIN TAB PO SCH (07:03)
[2017-03-01] MEDS: DOCUSATE SODIUM 100 MG CAP PO SCH ×2 (07:03→20:24)
[2017-03-01] MEDS: ACETAMINOPHEN 500 MG TAB PO SCH ×3 (07:04→21:47)
[2017-03-01] MEDS: RIVAROXABAN 10 MG TAB PO SCH (07:04)
[2017-03-01] MEDS: PANTOprazole SOD 40 MG TAB PO SCH (07:04)
[2017-03-01] MEDS: LISINOPRIL 20 MG TAB PO SCH (07:04)
[2017-03-01] MEDS: OXYCODONE HCL 10 MG TABCR (OXYCONTIN) PO SCH ×2 (08:57→20:23)
--- NOTE | 2017-03-01 10:30 | ECHOCARDIOGRAM REPORT ---
*NOTICE TO RECEIVING [employer] This information is strictly Confidential and protected under [place] law. [place] law prohibits you from making any further disclosure of this information unless further disclosure is expressly permitted by the written consent of the person to whom it pertains or is authorized by law. A general authorization for the release of medical or other information is not sufficient for this purpose. Hospital accepts no responsibility if the information is made available to any other person, INCLUDING THE PATIENT. Interpretation Summary * Name: DAVID RICO Study Date: 02/28/2017 02:21 PM BP: 153/80 mmHg * Patient Location: C.2T\S\S229\S\2 HR: 98 * : 1955 (M/d/yyyy) Gender: Female Height: 67 in * Age: 61 yrs Ethnicity: CA Weight: 281 lb * Ordering Physician: Letty Short * Referring Physician: Carlos Cai * Performed By: Heather Gregory RDCS * * Reason For Study: Syncope * BSA: 2.3 m2 * -- Conclusions -- * Technically limited study. * 1. Small LV cavity, mild concentric LVH. * 2. Normal LV systolic function. LVEF 65-70%. No regional wall motion abnormalities. * 3. Normal RV size and function. * 4. No significiant valvular pathology. * 5. Mild left atrial enlargement. * 6. No prior studies for comparison. Procedure Details * A complete two-dimensional transthoracic echocardiogram was performed (2D, M-mode, Doppler and color flow Doppler). * The study was technically limited. * The study was technically difficult. * There were technical limitations due to patient'spoor positioning * Patient was sitting in wheel chair for echo. Left Ventricle * The left ventricular cavity is small. * There is mild concentric left ventricular hypertrophy. * Ejection Fraction = 65-70%. Right Ventricle * The right ventricle is grossly normal size. * The right ventricular systolic function is normal as assessed by tricuspid annular plane systolic excursion (TAPSE) (normal >1.5 cm). Atria * The left atrium is mildly dilated. * Right atrial size is normal. * No ASD detected; PFO is not assessed. Mitral Valve * The mitral valve is grossly normal. * Significant mitral regurgitation is absent. Tricuspid Valve * Significant tricuspid regurgitation is absent. Aortic Valve * The aortic valve opens well. * No hemodynamically significant valvular aortic stenosis. * There is no significant aortic regurgitation. Pulmonic Valve * The pulmonary valve is inadequately visualized, but the Doppler data is adequate for interpretation. * There is no pulmonic valvular stenosis. * There is no pulmonic valvular regurgitation. Great Vessels * The aortic root and proximal ascending aorta are normal sized. Pericardium/Pleural * There is no pericardial effusion. Great Vessels * Normal inferior vena cava size and collapsability with sniff indicates a normal right atrial pressure of 3 mmHg MMode 2D Measurements and Calculations IVSd 1.4 cm LVIDd 3.3 cm LVIDs 2.1 cm LVPWd 1.3 cm IVS/LVPW 1.0 FS 37.5 % EDV(Teich) 45.1 ml ESV(Teich) 14.1 ml EF(Teich) 68.8 % EDV(cubed) 36.9 ml ESV(cubed) 9.0 ml EF(cubed) 75.6 % LV mass(C)d 147.5 grams LV mass(C)dI 63.1 grams/m\S\2 SV(Teich) 31.0 ml SI(Teich) 13.3 ml/m\S\2 SV(cubed) 27.9 ml SI(cubed) 11.9 ml/m\S\2 Ao root diam 3.5 cm Ao root area 9.7 cm\S\2 ACS 2.0 cm asc Aorta Diam 3.1 cm LVOT diam 2.0 cm LVOT area 3.0 cm\S\2 LVAd ap4 26.5 cm\S\2 LVLd ap4 8.2 cm EDV(MOD-sp4) 72.0 ml EDV(sp4-el) 72.7 ml LVAs ap4 13.4 cm\S\2 LVLs ap4 6.8 cm ESV(MOD-sp4) 22.5 ml ESV(sp4-el) 22.3 ml EF(MOD-sp4) 68.7 % EF(sp4-el) 69.4 % LVAd ap2 21.1 cm\S\2 LVLd ap2 7.0 cm EDV(MOD-sp2) 52.8 ml EDV(sp2-el) 54.1 ml LVAs ap2 11.1 cm\S\2 LVLs ap2 6.4 cm ESV(MOD-sp2) 16.3 ml ESV(sp2-el) 16.4 ml EF(MOD-sp2) 69.1 % EF(sp2-el) 69.7 % LVLd %diff -17.05 % EDV(MOD-bp) 66.5 ml LVLs %diff -6.69 % ESV(MOD-bp) 20.0 ml EF(MOD-bp) 69.9 % SV(MOD-sp4) 49.4 ml SI(MOD-sp4) 21.2 ml/m\S\2 SV(MOD-sp2) 36.5 ml SI(MOD-sp2) 15.6 ml/m\S\2 SV(MOD-bp) 46.5 ml SI(MOD-bp) 19.9 ml/m\S\2 SV(sp4-el) 50.5 ml SI(sp4-el) 21.6 ml/m\S\2 SV(sp2-el) 37.7 ml SI(sp2-el) 16.1 ml/m\S\2 Doppler Measurements and Calculations MV E max maria isabel 51.9 cm/sec MV A max maria isabel 77.1 cm/sec MV E/A 0.67 MV dec time 0.27 sec Ao V2 max 129.4 cm/sec Ao max PG 6.7 mmHg Ao max PG (full) 3.3 mmHg MEL(V,A) 2.2 cm\S\2 MEL(V,D) 2.2 cm\S\2 LV V1 max PG 3.4 mmHg LV V1 max 91.7 cm/sec PA V2 max 108.6 cm/sec PA max PG 4.7 mmHg PA acc slope 528.7 cm/sec\S\2 PA acc time 0.13 sec TR max maria isabel 101.6 cm/sec PA pr(Accel) 20.4 mmHg
--- NOTE | 2017-03-01 11:01 | Discharge Instructions ---
Discharge Instructions Date of Service Mar 01, 2017. Admission Reason for Admission: Right Hip Osteoarthritis Discharge Discharge Diagnosis / Problem: s/p right RONNIE Discharge Goals Goal(s): Decrease discomfort, Improve function, Increase independence, Therapeutic intervention Activity Recommendations Activity Limitations: per Instructions/Follow-up section Weightbearing Status: Right partial ACTIVITY RECOMMENDATIONS: SELF CARE INSTRUCTIONS AFTER TOTAL HIP REPLACEMENT Until the incision and soft tissues around your hip have healed, there is a possibility that the hip prosthesis could dislocate. A. Observe the following precautions to prevent dislocation: 1. Don't bend your hip greater than 90 degrees. 2. Avoid crossing your legs or ankles while standing or lying. 3. Sit with your feet placed 6 inches apart. 4. When sitting, keep your knees below your hips. Sit on a firm surface, avoid deep, soft chairs and couches. Use an elevated toilet seat in the bathroom. 5. Don't bend over at the waist. Use a long handled shoehorn and a sock aid to help you put on your shoes and socks. A city director can help you warehouse picker objects that are too high or too low to reach. 6. Keep car riding to a minimum for at least one month after surgery. B. Your balance may be shaky for a while. Use crutches or a walker until directed by your doctor. C. Use hand rails when walking on stairs. D. Wear low heeled shoes with non-slip soles. E. Be sure that your floors are free of things that could trip you - throw rugs , electrical cords, small objects. Avoid wet and waxed floors, especially with crutches and canes. F. Try to walk several times a day with rest periods between. G. Continue with all the exercises taught to you in the hospital. Again, make walking a part of your daily routine. SPECIAL CARE INSTRUCTIONS: VERY IMPORTANT TO READ AND REVIEW A. You may still be at risk for phlebitis and blood clots. 1. Wear surgical stockings (EFRAÍN hose) for 2 weeks after surgery to improve circulation and reduce swelling. 2. Take Aspirin 81mg twice daily for 4 weeks or as directed by your doctor. This is your blood thinner. 3. High risk patients may be prescribed a stronger blood thinner if necessary. 4. If you are on Coumadin normally, your family doctor/blower insulator should monitor your blood work. Expect a phone call the day of or the day after bloodwork is drawn to adjust your dosage. B. You must take antibiotics before having dental work, bladder, bowel and other surgery. Your doctor will provide you with a permanent card to carry describing precautions. C. Call [facility] if you have a fever, redness or swelling around the incision, cloudy drainage from incision, or sudden increase in pain in your hip, not relieved by your regular pain medication. D. Please call the office at if you have any concerns or questions about your operation or recovery. * YOU MAY SHOWER, NO TUB BATHS UNTIL CLEARED BY YOUR DOCTOR. * WEAR EFRAÍN HOSE 20 HOURS PER DAY FOR 2 WEEKS. * YOU SHOULD USE A WALKER OR CRUTCHES FOR 4 WEEKS. THIS WILL HELP PREVENT STRAIN ON YOUR HIP MUSCLE AND ALLOW IT TO HEAL PROPERLY. YOU MAY WEAN TO A CANE TOLERATED. * MOST PATIENTS WILL HAVE HOME NURSING FOR THERAPY. IF YOU DECIDE TO DO OUTPATIENT PHYSICAL THERAPY, PLEASE SCHEDULE THIS 3 TIMES PER WEEK. * YOU MAY HAVE A LARGE, PROVENA. THIS WILL REMAIN ON YOUR INCISION FOR 7 DAYS, THEN CAN BE REMOVED. IF INCISION IS LEAKING THROUGH DRESSING, PLEASE CALL THE OFFICE . FOLLOW UP VISIT: If appointment is not already scheduled: Please call [facility] to make a follow-up appointment for 2 weeks after your surgery at . . Current Hospital Diet Patient's current hospital diet: Diabetes Type 2 Diet Discharge Diet Recommended Diet: AHA Diet (Heart Healthy), N/A (diabetic diet) Procedures Procedures Performed: Right Total Hip Arthroplasty Pending Studies Studies pending at discharge: no Laboratory Results Hemoglobin A1c Test 01/20/17 13:00 Range/Units Estimated Average Glucose 143 mg/dl Hemoglobin A1c 6.6 H 4.5-5.6 % Medical Emergencies . Who to Call and When: Medical Emergencies: If at any time you feel your situation is an emergency, please call 911 immediately. . Non-Emergent Contact Non-Emergency issues call your: Primary Care Provider . "Provider Documentation" section prepared by Ofe Tenorio. . VTE Core Measure Inpt VTE Proph given/why not?: Other Anticoagulation, T.E.D. Stockings, SCD's [place] Drug Monitoring Program Search Results: patient reviewed within database, no issues identified
--- NOTE | 2017-03-01 11:03 | Orthopedic Progress Note ---
Orthopedic Progress Note Date of Service Mar 01, 2017. Subjective Post OP Day: 2 Reports: feeling well, pain controlled w PO medications, Denies: chest pain, SOB , nausea / vomiting, light headedness, calf pain Objective calves soft nontender, N/V intact, hip located, capillary refill less than 2 sec., dressing C/D/I (provena), A&O x3, toes mobile, hemovac drainage Date Time Temp Pulse Resp B/P (MAP) Pulse Ox O2 Delivery O2 Flow Rate FiO2 03/01/17 08:36 95 Room Air 2.0 03/01/17 07:33 37.7 72 18 108/69 (82) 95 03/01/17 04:00 Room Air 03/01/17 03:10 37.5 91 18 133/67 (89) 92 Room Air 03/01/17 00:00 37.6 103 20 107/51 (69) 95 Room Air 03/01/17 00:00 Room Air 02/28/17 20:00 Room Air 02/28/17 19:28 37.5 84 20 102/62 (75) 96 Room Air 02/28/17 16:00 95 Room Air 2.0 02/28/17 15:44 37.6 74 18 100/64 (76) 96 Room Air 02/28/17 15:15 37.6 74 18 100/64 96 02/28/17 13:48 36.5 78 112/78 95 02/28/17 13:43 96 02/28/17 13:18 36.8 78 18 103/65 95 02/28/17 13:03 36.7 78 20 91/47 97 02/28/17 12:19 36.5 70 20 110/60 95 02/28/17 12:00 36.7 80 20 112/78 (89) 95 Room Air 02/28/17 12:00 95 Room Air 2.0 02/28/17 11:19 36.7 72 18 102/64 Laboratory Results 24 Hours: Test 03/01/17 05:16 Hematocrit 24.8 % Hemoglobin 8.2 g/dL Assessment & Plan Assessment: POD #2 s/p right RONNIE . small femoral neck fx nondisplaced extending only to lesser trochanter with cerclage wiring.vasovagal episode due to pain yesterday , feeling better. postop anemia due to intraoperative and postop blood losses. blood transfusion yesterday.toe touch foot to balance weight on right for one month. Possible discharge Thursday pending Medicine Dept. approval Inhouse Planning Pain Management: Oxycontin, PO Tylenol, Oxy IR DVT Prophylaxis: TEDs, SCDs, Xarelto Discharge Planning Discharge Planning: home with home health Pain Management: Oxycontin, PO Tylenol, Oxy IR DVT Prophylaxis: Amna Xarelto Therapy: Physical Therapy
--- NOTE | 2017-03-01 19:12 | Hospitalist Progress Note ---
Hospitalist Progress Note Date of Service Mar 01, 2017. Subjective Pt evaluation today including: conversation w/ patient, physical exam, lab review, conversation w/ platform consultant Patient with no complaints Objective Vital Signs Date Time Temp Pulse Resp B/P (MAP) Pulse Ox O2 Delivery O2 Flow Rate FiO2 03/01/17 16:37 95 Room Air 2.0 03/01/17 15:26 37.2 100 18 117/63 (81) 93 Room Air 03/01/17 12:14 95 Room Air 2.0 03/01/17 11:40 36.9 74 18 129/62 (84) 97 03/01/17 08:36 95 Room Air 2.0 03/01/17 07:33 37.7 72 18 108/69 (82) 95 03/01/17 04:00 Room Air 03/01/17 03:10 37.5 91 18 133/67 (89) 92 Room Air 03/01/17 00:00 37.6 103 20 107/51 (69) 95 Room Air 03/01/17 00:00 Room Air 02/28/17 20:00 Room Air 02/28/17 19:28 37.5 84 20 102/62 (75) 96 Room Air Physical Exam General Appearance: no apparent distress, + obese Eyes: normal inspection ENT: hearing grossly normal Neck: trachea midline Respiratory/Chest: lungs clear Cardiovascular: regular rate, rhythm Abdomen: normal bowel sounds Extremities: no pedal edema Laboratory Results Last 24 Hours Test 02/28/17 20:01 03/01/17 05:16 03/01/17 05:31 03/01/17 11:32 Bedside Glucose 211 mg/dl 143 mg/dl 227 mg/dl White Blood Count 10.03 K/uL Red Blood Count 2.79 M/uL Hemoglobin 8.2 g/dL Hematocrit 24.8 % Mean Corpuscular Volume 88.9 fL Mean Corpuscular Hemoglobin 29.4 pg Mean Corpuscular Hemoglobin Concent 33.1 g/dl RDW Standard Deviation 47.2 fL RDW Coefficient of Variation 14.4 % Platelet Count 239 K/uL Mean Platelet Volume 9.4 fL Sodium Level 137 mmol/L Potassium Level 4.9 mmol/L Chloride Level 106 mmol/L Carbon Dioxide Level 28 mmol/L Anion Gap 3.0 mmol/L Blood Urea Nitrogen 18 mg/dl Creatinine 0.95 mg/dl Est Creatinine Clear Calc Drug Dose 88.6 ml/min Estimated GFR () 76.0 Estimated GFR (Non- 65.6 BUN/Creatinine Ratio 18.9 Random Glucose 124 mg/dl Calcium Level 8.5 mg/dl Test 03/01/17 16:17 Bedside Glucose 132 mg/dl Assessment and Plan (1) Anemia requiring transfusions Assessment & Plan: I will repeat CBC tomorrow however I would've expected increase of 2 points after 2 units of packed RBCs which we did not see. I will discontinue xarelto. Patient may require additional transfusion tomorrow. He is asymptomatic today. (2) Hypertension (3) S/P total hip arthroplasty Assessment & Plan: Based upon the patient's toe-touch only if the next month status home will not be the best option for her. A rehabilitation facility for some time and then transitioning to home would be safer. She lives with a cousin and the cousin has her own caregivers by report. Home as an option may require additional staffing other than home health. I would plan on discharge to short-term rehabilitation when she is medically stable. I discussed this with the patient nephrology social worker and orthopedic surgery. Discharge planning: uncertain
[2017-03-01] MEDS: MAGNESIUM HYDROXIDE SUSP 30 ML UDC PO PRN (20:23)
[2017-03-02] VITALS (7 sets, daily range): BP systolic 109–155; BP diastolic 63–74; PULSE 76–93; TEMP 36.9–37.9; O2SAT 93–96
[2017-03-02 05:50] LABS: HEMATOCRIT 23.7 % (37-47); MEAN CELL VOLUME 90.1 fL (80-100); MEAN CORPUSCULAR HEMOGLOBIN 29.3 pg (25-34); MEAN CORPUSCULAR HGB CONC 32.5 g/dl (32-36); MEAN PLATELET VOLUME 9.2 fL (7.4-10.4); PLATELET COUNT 257 K/uL (130-400); RED BLOOD COUNT 2.63 M/uL (4.2-5.4); WHITE BLOOD COUNT 9.52 K/uL (4.8-10.8)
[2017-03-02 06:23] LABS: BUN/CREATININE RATIO 18.2 (10-20); CALCIUM 8.3 mg/dl (8.5-10.1); CREATININE 0.74 mg/dl (0.60-1.20); POTASSIUM 4.5 mmol/L (3.5-5.1)
[2017-03-02] MEDS: ACETAMINOPHEN 500 MG TAB PO SCH ×3 (06:28→21:22)
[2017-03-02] MEDS: OXYCODONE HCL IR 5 MG TAB (IMMEDIATE RELEASE) PO PRN (06:30)
[2017-03-02] MEDS: PAROXETINE 20 MG TAB PO SCH (06:54)
[2017-03-02] MEDS: FERROUS GLUCONATE 324 MG TAB PO SCH ×3 (06:54→16:34)
[2017-03-02] MEDS: PANTOprazole SOD 40 MG TAB PO SCH (06:54)
[2017-03-02] MEDS: DOCUSATE SODIUM 100 MG CAP PO SCH ×2 (06:54→20:21)
[2017-03-02] MEDS: MULTIVITAMIN TAB PO SCH (06:54)
[2017-03-02] MEDS: LISINOPRIL 20 MG TAB PO SCH (06:55)
[2017-03-02] MEDS: INSULIN ASPART 100 UNITS/ML 3 ML PEN SC SCH ×4 (06:55→20:26)
[2017-03-02] MEDS: MAGNESIUM HYDROXIDE SUSP 30 ML UDC PO PRN (07:56)
[2017-03-02] MEDS: OXYCODONE HCL 10 MG TABCR (OXYCONTIN) PO SCH ×2 (08:31→20:22)
[2017-03-02] MEDS: SODIUM CHLORIDE 0.9% 1000ML 1,000 ML IV SCH ×2 (08:52→20:21)
--- NOTE | 2017-03-02 09:27 | Anesthesiology Progress Note ---
Anesthesia Post Op Note Date & Time Mar 02, 2017 at 09:26 Vital Signs Pain Intensity: 10.0 Vital Signs Past 12 Hours Date Time Temp Pulse Resp B/P (MAP) Pulse Ox O2 Delivery O2 Flow Rate FiO2 03/02/17 08:07 Room Air 03/02/17 07:23 37.9 85 18 109/65 (80) 95 Room Air 03/02/17 04:00 Room Air 03/02/17 03:35 37.3 93 18 127/74 (91) 93 Room Air 03/02/17 00:00 Room Air 03/01/17 23:00 37.4 88 18 103/61 (75) 92 Room Air Notes Mental Status: alert / awake / arousable, participated in evaluation Pt Amnestic to Procedure: Yes Nausea / Vomiting: adequately controlled Pain: adequately controlled Airway Patency, RR, SpO2: stable & adequate BP & HR: stable & adequate Hydration State: stable & adequate Neuraxial Anesthesia: was administered, sensory block resolved Anesthetic Complications: no major complications apparent
--- NOTE | 2017-03-02 09:33 | Orthopedic Progress Note ---
Orthopedic Progress Note Date of Service Mar 02, 2017. Subjective Post OP Day: 3 Reports: feeling well, pain controlled w PO medications, Denies: complaints, chest pain, SOB, nausea / vomiting, light headedness, calf pain Additional Notes: Hgb 7.7, being transfused per medicine today. Without syncopal episodes since day of surgery. Objective calves soft nontender, N/V intact, hip located, capillary refill less than 2 sec., dressing C/D/I, A&O x3, toes mobile Prevena in tact, questionable holding suction. Date Time Temp Pulse Resp B/P (MAP) Pulse Ox O2 Delivery O2 Flow Rate FiO2 03/02/17 08:07 Room Air 03/02/17 07:23 37.9 85 18 109/65 (80) 95 Room Air 03/02/17 04:00 Room Air 03/02/17 03:35 37.3 93 18 127/74 (91) 93 Room Air 03/02/17 00:00 Room Air 03/01/17 23:00 37.4 88 18 103/61 (75) 92 Room Air 03/01/17 20:38 36.4 90 18 127/65 (85) 98 Room Air 03/01/17 20:00 Room Air 03/01/17 16:37 95 Room Air 2.0 03/01/17 15:26 37.2 100 18 117/63 (81) 93 Room Air 03/01/17 12:14 95 Room Air 2.0 03/01/17 11:40 36.9 74 18 129/62 (84) 97 Laboratory Results 24 Hours: Test 03/02/17 05:18 Hematocrit 23.7 % Hemoglobin 7.7 g/dL Assessment & Plan Assessment: POD #3 s/p right RONNIE, small femoral neck fx nondisplaced extending only to lesser trochanter with cerclage wiring. vasovagal episode times one post op ,feeling better. postop anemia due to intraoperative and postop blood losses. poss blood transfusion today as per medicine rechecking H/H later today. toe touch foot to balance weight on right for one month. Discharge pending medical clearance. Plan: CONTINUE PT/ OT DVT PROPH- ON HOLD FOR NOW PER MEDICINE DUE TO ANEMIA, RESTART WHEN CLEARED D/C PLANNING- TO SNF WHEN MEDICALLY STABLE. APPRECIATED MEDICINE INPUT. Inhouse Planning Pain Management: Oxycontin, PO Tylenol, Oxy IR DVT Prophylaxis: TEDs, SCDs, Xarelto Discharge Planning Discharge Planning: correction facility Pain Management: Oxycontin, PO Tylenol, Oxy IR DVT Prophylaxis: TEDs, Xarelto Therapy: Physical Therapy, Occupational Therapy
--- NOTE | 2017-03-02 09:40 | Discharge Instructions ---
Discharge Instructions Date of Service Mar 02, 2017. Admission Reason for Admission: Right Hip Osteoarthritis Discharge Discharge Diagnosis / Problem: Right RONNIE, nondisplaced femoral neck fracture Discharge Goals Goal(s): Improve function Activity Recommendations Activity Level: Assistance Required Weightbearing Status: Right toe touch . Additional Information Patient informed of condition: Yes Advance Directives: No DNR: No Level of Care: Skilled Communicable Disease: No Prognosis: Stable [place] Catheter: No Instructions / Follow-Up Instructions / Follow-Up ACTIVITY RECOMMENDATIONS: SELF CARE INSTRUCTIONS AFTER TOTAL HIP REPLACEMENT Until the incision and soft tissues around your hip have healed, there is a possibility that the hip prosthesis could dislocate. A. Observe the following precautions to prevent dislocation: 1. Don't bend your hip greater than 90 degrees. 2. Avoid crossing your legs or ankles while standing or lying. 3. Sit with your feet placed 6 inches apart. 4. When sitting, keep your knees below your hips. Sit on a firm surface, avoid deep, soft chairs and couches. Use an elevated toilet seat in the bathroom. 5. Don't bend over at the waist. Use a long handled shoehorn and a sock aid to help you put on your shoes and socks. A eddy current inspector can help you pickling drum operator objects that are too high or too low to reach. 6. Keep car riding to a minimum for at least one month after surgery. B. Your balance may be shaky for a while. Use crutches or a walker until directed by your doctor. TOE TOUCH WEIGHT BEARING FOR 1 MONTH C. Use hand rails when walking on stairs. D. Wear low heeled shoes with non-slip soles. E. Be sure that your floors are free of things that could trip you - throw rugs , electrical cords, small objects. Avoid wet and waxed floors, especially with crutches and canes. F. Try to walk several times a day with rest periods between. G. Continue with all the exercises taught to you in the hospital. Again, make walking a part of your daily routine. SPECIAL CARE INSTRUCTIONS: VERY IMPORTANT TO READ AND REVIEW A. You may still be at risk for phlebitis and blood clots. 1. Wear surgical stockings (EFRAÍN hose) for 2 weeks after surgery to improve circulation and reduce swelling. 2. Take Aspirin 81mg twice daily for 4 weeks or as directed by your doctor. This is your blood thinner. 3. High risk patients may be prescribed a stronger blood thinner if necessary- XARELTO 4. If you are on Coumadin normally, your family doctor/bicycle technician should monitor your blood work. Expect a phone call the day of or the day after bloodwork is drawn to adjust your dosage. B. You must take antibiotics before having dental work, bladder, bowel and other surgery. Your doctor will provide you with a permanent card to carry describing precautions. C. Call [facility] if you have a fever, redness or swelling around the incision, cloudy drainage from incision, or sudden increase in pain in your hip, not relieved by your regular pain medication. D. Please call the office at if you have any concerns or questions about your operation or recovery. * YOU MAY SHOWER, NO TUB BATHS UNTIL CLEARED BY YOUR DOCTOR. * WEAR EFRAÍN HOSE 20 HOURS PER DAY FOR 2 WEEKS. * YOU SHOULD USE A WALKER OR CRUTCHES FOR 4-6 WEEKS. THIS WILL HELP PREVENT STRAIN ON YOUR HIP MUSCLE AND ALLOW IT TO HEAL PROPERLY. YOU MAY WEAN TO A CANE TOLERATED. * MOST PATIENTS WILL HAVE HOME NURSING FOR THERAPY. IF YOU DECIDE TO DO OUTPATIENT PHYSICAL THERAPY, PLEASE SCHEDULE THIS 3 TIMES PER WEEK. * YOU MAY HAVE A LARGE, BAND-CRYSTAL LIKE DRESSING (SILVERON). THIS WILL REMAIN ON YOUR INCISION FOR 7 DAYS, THEN CAN BE REMOVED. IF INCISION IS LEAKING THROUGH DRESSING, PLEASE CALL THE OFFICE . FOLLOW UP VISIT: If appointment is not already scheduled: Please call [facility] to make a follow-up appointment for 2 weeks after your surgery at . YOU HAVE A WOUND VAC ON YOUR INCISION, THIS SHOULD BE REMOVED 1 WEEK POST OP AND AND ALL PARTS DISCARDED, REPLACE WITH STERILE DRESSINGS DAILY UNTIL FOLLOW UP IN OFFICE. Current Hospital Diet Patient's current hospital diet: Diabetes Type 2 Diet Discharge Diet Recommended Diet: Diabetes Type 2 Diet Procedures Procedures Performed: Right Total Hip Arthroplasty Pending Studies Studies pending at discharge: no Laboratory Results Hemoglobin A1c Test 01/20/17 13:00 Range/Units Estimated Average Glucose 143 mg/dl Hemoglobin A1c 6.6 H 4.5-5.6 % Medical Emergencies . Who to Call and When: Medical Emergencies: If at any time you feel your situation is an emergency, please call 911 immediately. . Non-Emergent Contact Non-Emergency issues call your: Primary Care Provider . . "Provider Documentation" section prepared by Ildefonso Reveles. . Core Measure Problem Core Measures: VTE VTE Core Measures Date of VTE Diagnosis: Feb 27, 2017 Time of VTE Diagnosis: 09:39 Reason no anticoag overlap I/P: Treatment provided - N/A Reason no anticoag overlap @DC: Treatment provided - N/A [place] Drug Monitoring Program Search Results: patient reviewed within database, no issues identified
[2017-03-02] MEDS ORDERED: CLC100 PO (09:45)
[2017-03-02] MEDS ORDERED: FRRG PO (09:45)
[2017-03-02] MEDS ORDERED: MULT-506 PO (09:45)
[2017-03-02] MEDS ORDERED: PRLSR20 PO (09:45)
[2017-03-02] MEDS ORDERED: ACET-24 PO (09:45)
[2017-03-02] MEDS ORDERED: LISI-725 PO (09:45)
[2017-03-02] MEDS ORDERED: GLYBURIDE METFORMIN PO (09:45)
[2017-03-02] MEDS ORDERED: PARO1TAB27 PO (09:45)
[2017-03-02] MEDS ORDERED: LOVA40TA4 PO (09:45)
[2017-03-02] MEDS ORDERED: OXYSR10 PO (09:45)
[2017-03-02] MEDS ORDERED: XRL10 PO (09:45)
[2017-03-02] MEDS ORDERED: RXC5 PO (09:45)
[2017-03-02 10:37] LABS: HEMATOCRIT 25.6 % (37-47)
--- NOTE | 2017-03-02 14:06 | Hospitalist Progress Note ---
Hospitalist Progress Note Date of Service Mar 02, 2017. (Nasreen Rudd ., ILANAC) Subjective Pt evaluation today including: conversation w/ patient, physical exam, chart review, lab review, review of inpatient medication list Pain: Well managed with PO medications PO Intake: Tolerating PO diet Voiding: no voiding problems (Lancaster just taken out at time of exam) Patient reports feeling well. She denies any more syncopal episodes. She states she is ambulating better today and that her right hip pain is well controlled. She is tolerating a PO diet well. Her Lancaster catheter has just been removed prior to my examination, so she has not yet voided on her own. She is passing gas and had a bowel movement this morning. The patient denies fevers, chills, sweats, chest pain, palpitations, claudication, cough, wheezing , shortness of breath, dyspnea on exertion, nausea, vomiting, abdominal pain, dysuria, hematuria, urinary retention, paralysis, weakness, numbness and tingling. Additional Comments: See HPI for pertinent positives and negatives. All other systems reviewed and negative. (Nasreen Rudd ., BRYAN-C) Objective Vital Signs Date Time Temp Pulse Resp B/P (MAP) Pulse Ox O2 Delivery O2 Flow Rate FiO2 03/02/17 12:06 Room Air 03/02/17 11:03 37.0 78 18 155/72 (99) 96 Room Air 03/02/17 08:07 Room Air 03/02/17 07:23 37.9 85 18 109/65 (80) 95 Room Air 03/02/17 04:00 Room Air 03/02/17 03:35 37.3 93 18 127/74 (91) 93 Room Air 03/02/17 00:00 Room Air 03/01/17 23:00 37.4 88 18 103/61 (75) 92 Room Air 03/01/17 20:38 36.4 90 18 127/65 (85) 98 Room Air 03/01/17 20:00 Room Air 03/01/17 16:37 95 Room Air 2.0 03/01/17 15:26 37.2 100 18 117/63 (81) 93 Room Air (Nasreen Rudd PA-C) Physical Exam Notes: General appearance: +Morbidly obese. Well-developed, well-nourished, no apparent distress Head: Normocephalic, atraumatic Eyes: Normal inspection, PERRL, EOMI ENT: Normal ENT inspection, hearing grossly normal, pharynx normal Neck: Supple, no JVD, trachea midline Respiratory/Chest: Lungs clear to auscultation, normal breath sounds, no respiratory distress Cardiovascular: Regular rate & rhythm, no gallop, no murmur Abdomen/GI: Normal bowel sounds, non-tender, soft Extremities/Musculoskeletal: Normal inspection, no calf tenderness, no pedal edema Neurological/Psych: Alert, normal mood/affect, oriented x 3 Skin: Normal color, warm/dry, no rash (Nasreen Rudd ., PA-C) Laboratory Results Last 24 Hours Test 03/01/17 16:17 03/01/17 20:32 03/02/17 05:18 03/02/17 06:24 Bedside Glucose 132 mg/dl 155 mg/dl 144 mg/dl White Blood Count 9.52 K/uL Red Blood Count 2.63 M/uL Hemoglobin 7.7 g/dL Hematocrit 23.7 % Mean Corpuscular Volume 90.1 fL Mean Corpuscular Hemoglobin 29.3 pg Mean Corpuscular Hemoglobin Concent 32.5 g/dl RDW Standard Deviation 48.3 fL RDW Coefficient of Variation 14.6 % Platelet Count 257 K/uL Mean Platelet Volume 9.2 fL Sodium Level 141 mmol/L Potassium Level 4.5 mmol/L Chloride Level 108 mmol/L Carbon Dioxide Level 29 mmol/L Anion Gap 4.0 mmol/L Blood Urea Nitrogen 13 mg/dl Creatinine 0.74 mg/dl Est Creatinine Clear Calc Drug Dose 117.8 ml/min Estimated GFR () 102.8 Estimated GFR (Non- 88.7 BUN/Creatinine Ratio 18.2 Random Glucose 123 mg/dl Calcium Level 8.3 mg/dl Test 03/02/17 10:24 03/02/17 11:13 Hemoglobin 8.4 g/dL Hematocrit 25.6 % Bedside Glucose 180 mg/dl (Nasreen Rudd ., PA-C) Assessment and Plan (1) Anemia requiring transfusions (2) Hypertension (3) S/P total hip arthroplasty 61-year-old female with a history of hypertension, diabetes mellitus type 2, hyperlipidemia, GERD, and osteoarthritis who presents s/p right RONNIE with Dr. Cai on 02/27 for medical management following a syncopal episode. -Pain management, DVT prophylaxis, and PT/OT as per primary team -POD #3 Syncope--resolved -Likely vasovagal, no recurrence -EKG no ischemic changes, troponins negative -Echo shows LVEF of 65-70%, mild concentric LVH, no wall motion abnormalities Acute blood loss anemia in postoperative setting--ongoing -Pre operative labs show Hgb of 11.8 -First post op Hgb was 8.6 -Hgb dropped to 7.8 on 02/28, received 2 units PRBCs. Hgb only up to 8.2 on 03/01 -Hgb down to 7.7 on 03/02. Rechecked a H&H at 1100, and hgb up to 8.4. Hold off further transfusions -Continue to monitor on tele for now. No acute events overnight. Pt in sinus rhythm with PVCs, HR 70s-80s -Pt asymptomatic, even on exertion -Can resume Xarelto tomorrow morning if Hgb remains stable Diabetes mellitus type 2--hemoglobin A1c 6.6 on 01/20 -Hold glyburide/metformin -Insulin sliding scale -Check BSGs q ac and qhs Hypertension--stable -Continue lisinopril 20 mg PO qd HLD -Continue lovastatin 40 mg PO qd CKD stage III--stable. Preop labs show creatinine of 1.3 -Creatinine stable and WNL Thank you for this consultation. We will continue to follow. (Nasreen Rudd ., PA-C) I agree with PA assessment and plan and have seen and examined pt myself S/P RONNIE Labs and vitals reviewed Resting comfortably in bed Noted inc in Hg No noted bleeding source Cont to monitor Can resume xarelto likely in 24 hrs (Yehuda Charles D.O.)
[2017-03-03 04:00] VITALS: BP 159/72; PULSE 87; TEMP 37.1; O2SAT 96
[2017-03-03] MEDS: SODIUM CHLORIDE 0.9% 1000ML 1,000 ML IV SCH ×2 (05:30→14:04)
[2017-03-03] MEDS: ACETAMINOPHEN 500 MG TAB PO SCH ×2 (06:00→13:34)
[2017-03-03 06:14] LABS: HEMATOCRIT 24.2 % (37-47); MEAN CELL VOLUME 90.6 fL (80-100); MEAN CORPUSCULAR HEMOGLOBIN 30.3 pg (25-34); MEAN CORPUSCULAR HGB CONC 33.5 g/dl (32-36); MEAN PLATELET VOLUME 9.1 fL (7.4-10.4); PLATELET COUNT 330 K/uL (130-400); RED BLOOD COUNT 2.67 M/uL (4.2-5.4); WHITE BLOOD COUNT 9.84 K/uL (4.8-10.8)
[2017-03-03 06:55] LABS: BUN/CREATININE RATIO 15.2 (10-20); CALCIUM 8.6 mg/dl (8.5-10.1); CREATININE 0.79 mg/dl (0.60-1.20); POTASSIUM 3.8 mmol/L (3.5-5.1)
[2017-03-03] MEDS: OXYCODONE HCL 10 MG TABCR (OXYCONTIN) PO SCH (06:58)
[2017-03-03] MEDS: FERROUS GLUCONATE 324 MG TAB PO SCH ×3 (06:59→16:06)
[2017-03-03] MEDS: MULTIVITAMIN TAB PO SCH (06:59)
[2017-03-03] MEDS: DOCUSATE SODIUM 100 MG CAP PO SCH (06:59)
[2017-03-03] MEDS: PAROXETINE 20 MG TAB PO SCH (07:00)
[2017-03-03] MEDS: PANTOprazole SOD 40 MG TAB PO SCH (07:00)
[2017-03-03] MEDS: LISINOPRIL 20 MG TAB PO SCH (07:00)
[2017-03-03] MEDS: INSULIN ASPART 100 UNITS/ML 3 ML PEN SC SCH ×3 (07:03→16:06)
[2017-03-03 07:17] VITALS: BP 174/72; PULSE 88; TEMP 37; O2SAT 97
[2017-03-03] MEDS ORDERED: HydrALAZINE HCL 20 MG/ML VIAL IV. PRN (07:30)
[2017-03-03 11:28] VITALS: BP 164/80; PULSE 88; TEMP 36.9; O2SAT 100
[2017-03-03] MEDS ORDERED: XRL10 PO (12:06)
[2017-03-03 12:24] VITALS: BP 164/80; PULSE 88; TEMP 36.9; O2SAT 100
--- NOTE | 2017-03-03 12:30 | Orthopedic Progress Note ---
Orthopedic Progress Note Date of Service Mar 03, 2017. Subjective Post OP Day: 4 Reports: feeling well, Denies: complaints Additional Notes: Pt wanting to go home. Continues to improve in PT and no longer wants to go to a SNF etc. Ambulated 275' yesterday. Pt is sometimes tearful and states that she and her family will do fine with Home Health. No new complaints. Objective calves soft nontender, N/V intact, hip located, dressing C/D/I (Prevena), A&O x3 , toes mobile Date Time Temp Pulse Resp B/P (MAP) Pulse Ox O2 Delivery O2 Flow Rate FiO2 03/03/17 12:06 Room Air 03/03/17 11:28 36.9 88 18 164/80 (108) 100 Room Air 03/03/17 08:10 Room Air 03/03/17 07:17 37.0 88 18 174/72 (106) 97 Room Air 03/03/17 04:00 Room Air 03/03/17 04:00 37.1 87 17 159/72 (101) 96 Room Air 03/03/17 00:00 Room Air 03/02/17 23:35 36.9 77 17 144/63 (90) 96 Room Air 03/02/17 20:00 Room Air 03/02/17 19:14 37.3 76 18 128/68 (88) 93 Room Air 03/02/17 16:00 96 Room Air 03/02/17 15:21 37.1 76 18 135/64 (87) 96 Room Air Laboratory Results 24 Hours: Test 03/03/17 05:09 Hematocrit 24.2 % Hemoglobin 8.1 g/dL Assessment & Plan Assessment: POD #4 s/p right RONNIE, small femoral neck fx nondisplaced extending only to lesser trochanter with cerclage wiring. vasovagal episode times one post op ,feeling better. postop anemia due to intraoperative and postop blood losses. poss blood transfusion today as per medicine recheck today was 8.1 toe touch foot to balance weight on right for one month. Discharge pending medical clearance. Plan: CONTINUE PT/ OT DVT PROPH- Xarelto restarted today D/C PLANNING - Home with Home Health today Dr Charles has seen the patient today and has cleared her for DC. Inhouse Planning Pain Management: Oxycontin, PO Tylenol, Oxy IR DVT Prophylaxis: TEDs, SCDs, Xarelto Discharge Planning Discharge Planning: home with home health Pain Management: Oxycontin, PO Tylenol, Oxy IR DVT Prophylaxis: EFRAÍNs Xarelto Therapy: Physical Therapy
--- NOTE | 2017-03-03 14:32 | Progress Note ---
Subjective Date of Service: Mar 03, 2017. Subjective Pt evaluation today including: conversation w/ patient, physical exam, chart review, lab review, review of studies, conversation w/ as400 consultant, review of inpatient medication list Pt denies any chest pain, shortness of breath or worsening pain States wanting to go home Review of Systems Constitutional: No fever, No chills, No sweats, No weight loss, No weakness ENT: No hearing loss, No unusual epistaxis, No nasal symptoms, No sore throat Respiratory: No cough, No sputum, No wheezing, No shortness of breath, No dyspnea on exertion Cardiac: No chest pain, No orthopnea, No PND, No edema Abdomen: No pain, No nausea, No vomiting, No diarrhea, No constipation Musculoskeletal: No joint pain, No muscle pain, No swelling, No calf pain Female : No dysuria, No urinary frequency, No hematuria, No incontinence Neurologic: No memory loss, No paralysis, No weakness, No numbness/tingling Psychiatric: No depression symptoms, No anhedonism, No anxiety, No insomnia Heme: No abnormal bleeding/bruising, No clotting problems Endo: No fatigue Skin: No rash, No itch Objective Vital Signs Date Time Temp Pulse Resp B/P (MAP) Pulse Ox O2 Delivery O2 Flow Rate FiO2 03/03/17 12:24 36.9 88 18 100 Room Air 03/03/17 12:06 Room Air 03/03/17 11:28 36.9 88 18 164/80 (108) 100 Room Air 03/03/17 08:10 Room Air 03/03/17 07:17 37.0 88 18 174/72 (106) 97 Room Air 03/03/17 04:00 Room Air 03/03/17 04:00 37.1 87 17 159/72 (101) 96 Room Air 03/03/17 00:00 Room Air 03/02/17 23:35 36.9 77 17 144/63 (90) 96 Room Air 03/02/17 20:00 Room Air 03/02/17 19:14 37.3 76 18 128/68 (88) 93 Room Air 03/02/17 16:00 96 Room Air 03/02/17 15:21 37.1 76 18 135/64 (87) 96 Room Air Physical Exam General Appearance: WD/WN, no apparent distress Eyes: normal inspection, PERRL, EOMI, sclerae normal Neck: supple, no adenopathy, thyroid normal, no JVD Respiratory/Chest: chest non-tender, lungs clear, normal breath sounds, no respiratory distress Cardiovascular: regular rate, rhythm, no edema, no gallop, no JVD Abdomen: normal bowel sounds, non tender, soft, no organomegaly Extremities: normal range of motion, non-tender, normal inspection, no pedal edema Neurologic/Psychiatric: credit risk review officer II-XII nml as tested, no motor/sensory deficits, alert, normal mood/affect, oriented x 3 Laboratory Results Last 24 Hours Test 03/02/17 16:01 03/02/17 19:59 03/03/17 05:09 03/03/17 06:32 Bedside Glucose 159 mg/dl 175 mg/dl 153 mg/dl White Blood Count 9.84 K/uL Red Blood Count 2.67 M/uL Hemoglobin 8.1 g/dL Hematocrit 24.2 % Mean Corpuscular Volume 90.6 fL Mean Corpuscular Hemoglobin 30.3 pg Mean Corpuscular Hemoglobin Concent 33.5 g/dl RDW Standard Deviation 47.9 fL RDW Coefficient of Variation 14.5 % Platelet Count 330 K/uL Mean Platelet Volume 9.1 fL Sodium Level 139 mmol/L Potassium Level 3.8 mmol/L Chloride Level 104 mmol/L Carbon Dioxide Level 28 mmol/L Anion Gap 7.0 mmol/L Blood Urea Nitrogen 12 mg/dl Creatinine 0.79 mg/dl Est Creatinine Clear Calc Drug Dose 107.5 ml/min Estimated GFR () 95.0 Estimated GFR (Non- 81.9 BUN/Creatinine Ratio 15.2 Random Glucose 134 mg/dl Calcium Level 8.6 mg/dl Test 03/03/17 11:06 Bedside Glucose 239 mg/dl Assessment and Plan 61-year-old female with a history of hypertension, diabetes mellitus type 2, hyperlipidemia, GERD, and osteoarthritis who presents s/p right RONNIE with Dr. Cai on 02/27 for medical management following a syncopal episode. Pain management, DVT prophylaxis, and PT/OT as per primary team POD # 4 Syncope--resolved Likely vasovagal, no recurrence EKG no ischemic changes, troponins negative Echo shows LVEF of 65-70%, mild concentric LVH, no wall motion abnormalities Acute blood loss anemia in postoperative setting--ongoing Pre operative labs show Hgb of 11.8 First post op Hgb was 8.6 Hgb dropped to 7.8 on 02/28, received 2 units PRBCs. Hgb only up to 8.2 on 03/01 Hgb down to 7.7 on 03/02. Rechecked a H&H at 1100, and hgb up to 8.4. Hold off further transfusions No acute events overnight. Stable for dicharge, can resume xarelto 10 mg PO daily Diabetes mellitus type 2--hemoglobin A1c 6.6 on 01/20 -Hold glyburide/metformin -Insulin sliding scale -Check BSGs q ac and qhs Hypertension--stable -Continue lisinopril 20 mg PO qd HLD -Continue lovastatin 40 mg PO qd CKD stage III--stable. Preop labs show creatinine of 1.3 -Creatinine stable and WNL Discharge planning: uncertain
[2017-03-03] MEDS ORDERED: RIVAROXABAN 10 MG TAB PO SCH (16:45)
--- NOTE | 2017-03-06 08:44 | DISCHARGE SUMMARY ---
DISCHARGE DIAGNOSIS: Degenerative joint disease, right hip. SECONDARY DIAGNOSIS: Morbid obesity, acute blood loss anemia and syncopal episode. CONSULTS: Dr. Henderson. COMPLICATIONS: None. PROCEDURE: The patient underwent a right total hip arthroplasty with Dr. Cai on 02/27/2017. BRIEF HISTORY: Please see previously dictated history and physical. HOSPITAL SUMMARY: The patient was admitted on the above day for the above procedure. Procedure went without complication. Postop day 1, the patient was feeling well without complaints per the hospitalist's note. No vital signs were stable. She was afebrile. Dressing was clean, dry and intact. She was neurovascularly intact. Calves were soft and nontender. Hemoglobin was 7.8. The patient was ordered a blood transfusion at that time. Postop day 2, the patient was feeling well without complaints. She denied chest pain or shortness of breath. Vital signs were stable. She was afebrile. Dressing was clean, dry and intact with a Prevena. She was alert and oriented. Hemoglobin improved to 8.2. The patient does have a small femoral neck nondisplaced fracture extending into the lesser trochanter that was cerclaged wired intraoperatively. She is toe-touch weightbearing for 1 month. She did have a vasovagal episode in transfusion yesterday. She is continuously monitored in telemetry. Postop day #3, the patient is improving. Hemoglobin was 7.7; additional transfusion has been ordered. She has been without syncopal episodes since the day of surgery. Vital signs were stable. She was afebrile. Prevena dressing was clean, dry and intact. She was neurovascularly intact. Calves were soft and nontender. Repeat H&H was 8.4 and transfusion was held. She continued to progress with physical therapy. Postop day #4, the patient was improving. She no longer [facility]. She is able to ambulate 275 feet. Vital signs were stable. She was afebrile. Dressing was clean, dry and intact. She was neurovascularly intact. Calves were soft and nontender. Hemoglobin was 8.1. The patient continued to progress with physical therapy. Xarelto was restarted. She was discharged to home with home physical therapy. For further review, please see the chart. Lab, x-ray data and discharge instructions as per chart.
== END 2017-03-03 16:13 | disposition home health service (06) | DRG 470 ==
LOC: C.ACU 05:20 → C.3E 06:00 → ENRESERV 12:03 → C.2T 21:26
PROVIDERS: ADMIT Orthopaedic Surgery Sports Medicine; ATTEND Orthopaedic Surgery Sports Medicine
PROC: 0SR90JZ Replacement of Right Hip Joint with Synthetic Substitute, Open Approach (ICD-10-PCS; principal; 2017-02-27 07:30)
PROC: 0QH604Z Insertion of Internal Fixation Device into Right Upper Femur, Open Approach (ICD-10-PCS; principal; 2017-02-27 07:30)
DX: M16.11 Unilateral primary osteoarthritis, right hip (principal); M90.551 Osteonecrosis in diseases classified elsewhere, right thigh; M96.661 Fracture of femur following insertion of orthopedic implant, joint prosthesis, or bone plate, right leg; D62 Acute posthemorrhagic anemia; Z68.41 Body mass index [BMI] 40.0-44.9, adult; Y83.8 Other surgical procedures as the cause of abnormal reaction of the patient, or of later complication, without mention of misadventure at the time of the procedure; Y79.2 Prosthetic and other implants, materials and accessory orthopedic devices associated with adverse incidents; Y92.234 Operating room of hospital as the place of occurrence of the external cause; R55 Syncope and collapse; I12.9 Hypertensive chronic kidney disease with stage 1 through stage 4 chronic kidney disease, or unspecified chronic kidney disease; N18.3 Chronic kidney disease, stage 3 (moderate); E78.5 Hyperlipidemia, unspecified; K21.9 Gastro-esophageal reflux disease without esophagitis; E11.42 Type 2 diabetes mellitus with diabetic polyneuropathy; F41.9 Anxiety disorder, unspecified; F32.9 Major depressive disorder, single episode, unspecified; F39 Unspecified mood [affective] disorder; E66.01 Morbid (severe) obesity due to excess calories; Z79.82 Long term (current) use of aspirin; Z79.84 Long term (current) use of oral hypoglycemic drugs; Z79.891 Long term (current) use of opiate analgesic; Z79.899 Other long term (current) drug therapy